=== PATIENT | male | born 1965 | race Asian ===

== ENCOUNTER → 2024-06-06 | Outpatient (CLI) | payer OTHER, SELFPAY ==
--- NOTE | 2024-06-06 16:15 | XR_ITS ---
Examination: Abdomen sonogram, Limited Date and time of exam: June 06, 2024 1540 hours INDICATIONS: Abdominal pain heartburn acid reflux beginning one month ago. Technique: Real-time perrin scale transabdominal sonographic images of the upper abdomen obtained. Findings: Normal gallbladder Normal common bile duct 0.2 cm Pancreatic head 2.4 cm Liver 16.9 cm fatty infiltration smooth contour no focal liver lesions Normal hepatopedal portal venous flow Patent IVC IMPRESSION: Normal gallbladder Normal common bile duct Mild hepatomegaly fatty liver
== END | disposition home or self-care (01) ==
PROVIDERS: PCP Specialist; Referring Provider Specialist; Visit Provider Specialist
DX: K76.0 Fatty (change of) liver, not elsewhere classified (principal)
CPT/HCPCS: 76705

== ENCOUNTER 2024-07-31 14:39 | Outpatient (RCR) | payer OTHER, SELFPAY ==
--- NOTE | 2024-07-31 15:00 | XR_ITS ---
Examination: LIVAN, hepatobiliary radioisotope scan Gallbladder ejection fraction study. Date and time of exam: July 31, 2024 1443 hours INDICATIONS: Severe acid reflux heartburn abdominal pain 2 months Technique: 5.9 mCi of 99M Hepatolite administered. Serial imaging then obtained from immediate through 60 minutes. 1.5 mcg selective catheter Kinevac administered for gallbladder ejection fraction study. Findings: Radioisotope activity within the liver is reasonably homogenous. Gallbladder, common bile duct small bowel activity noted Impression: Gallbladder activity Abnormal gallbladder ejection fraction, 9%
== END 2024-08-05 23:59 | disposition home or self-care (01) ==
LOC: SNUC 14:39
PROVIDERS: PCP Family Medicine; Referring Provider Specialist; Visit Provider Specialist
DX: R93.2 Abnormal findings on diagnostic imaging of liver and biliary tract (principal)
CPT/HCPCS: 78227; A9537; J2805

== ENCOUNTER 2025-05-06 09:35 | Outpatient (RCR) | payer BC, OTHER, SELFPAY ==
--- NOTE | 2025-05-06 10:00 | XR_ITS ---
Examination: LIVAN, hepatobiliary radioisotope scan Gallbladder ejection fraction study. Date and time of exam: May 06, 2025, 1208 hours INDICATIONS: Epigastric pain heartburn nausea vomiting dysphagia 2 years Technique: 5.8 mCi of 99M Hepatolite administered. Serial imaging then obtained from immediate through 60 minutes. 1.5 mcg selective catheter Kinevac administered for gallbladder ejection fraction study. Findings: Radioisotope activity within the liver is reasonably homogenous. Gallbladder, common bile duct small bowel activity noted Impression: Gallbladder activity Normal gallbladder ejection fraction, 76%
== END 2025-05-11 23:59 | disposition home or self-care (01) ==
LOC: SNUC 09:35
PROVIDERS: PCP Family Medicine; Referring Provider Specialist; Visit Provider Specialist
DX: R94.5 Abnormal results of liver function studies (principal); R93.2 Abnormal findings on diagnostic imaging of liver and biliary tract
CPT/HCPCS: 78227; A9537; J2805